=== PATIENT | male | born 2000 | race Two or more races ===

== ENCOUNTER 2023-09-01 12:36 | Inpatient (IN) | payer MEDICAID, OTHER ==
[~2023-09-01] VITALS: Ht 160 cm; Wt 78.2 kg
[2023-09-01] MEDS: ACETAMINOPHEN 325 MG TAB PO ONE (13:00)
[2023-09-01 13:15] VITALS: PULSE 145; RESP 18; O2SAT 89
[2023-09-01] MEDS: ACETAMINOPHEN 650 MG RECT SUPP PR ONE (13:29)
[2023-09-01] MEDS: levETIRAcetam 1000 mg/100ml 100 ML IV ONE (13:45)
[2023-09-01 14:16] LABS: Hematocrit 37.8 % (41.0-53.0); Hemoglobin 12.8 g/dL (13.5-17.5); Mean Corpuscular Hemoglobin 30.2 pg (28.0-32.0); Red Blood Cells 4.25 10^6/uL (4.5-5.90); Red Cell Distribution Width 13.9 % (11.8-14.3); White Blood Cell 9.9 10^3/uL (4.4-10.8)
[2023-09-01 14:19] LABS: Basophils % (manual) 0 (0.0-2.0); Blast Cells 0; Eosinophils % (manual) 0 (0-7); Metamyelocytes % 0; Myelocytes % 0; Promyelocytes % 0; Reactive Lymphocytes 0
[2023-09-01 14:37] LABS: Alanine Aminotransferase 48 U/L (7-40); Albumin 3.8 g/dL (3.2-4.8); Alkaline Phosphatase 96 U/L (46-116); Anion Gap 9 (5-15); BUN/Creatinine Ratio 12.7 (10.0-20.0); Bilirubin, Total 0.8 mg/dL (0.2-1.0); Blood Urea Nitrogen 17 mg/dL (9-23); Calcium 8.8 mg/dL (8.7-10.4); Carbon Dioxide 24 mmol/L (20-30); Chloride 103 mmol/L (98-107); Glucose 125 mg/dL (74-106); Magnesium 1.6 mg/dL (1.6-2.6); Potassium 3.6 mmol/L (3.5-5.1); Sodium 136 mmol/L (136-145); Total Protein 6.6 g/dL (5.7-8.2)
[2023-09-01 14:38] LABS: Aspartate Aminotransferase 37 U/L (13-40)
[2023-09-01 14:42] LABS: Band Neutrophils % (manual) 57; Lymphocytes % (manual) 5 (10.0-50.0); Monocytes % (manual) 3 (0-12)
[2023-09-01 14:43] LABS: Platelet Estimate Adequate
[2023-09-01] MEDS: SODIUM CHLORIDE 0.9% 2,000 ML IV ONE (15:30)
[2023-09-01] MEDS: NITROGLYCERIN 2% OINT 1GM PKG TD ONE (17:28)
[2023-09-01] MEDS ORDERED: NITROGLYCERIN 0.4 MG SL TAB SL PRN (17:30)
[2023-09-01] MEDS ORDERED: LEVO175T4 PO (17:30)
[2023-09-01] MEDS ORDERED: ONDANSETRON HCL 4 MG/2 ML VIAL IV PRN (17:30)
[2023-09-01] MEDS ORDERED: FLUT50SP EACHNOSTRI (17:30)
[2023-09-01] MEDS ORDERED: DOCU-265 PO (17:30)
[2023-09-01] MEDS ORDERED: MORPHINE SULFATE INJ 2 MG/ml SYRG IV PRN (17:30)
[2023-09-01] MEDS: PIPERACILLIN-TAZOB 3.375GM 100 ML IV ONE (17:32)
[2023-09-01] MEDS: ENOXAPARIN SOD 100 MG/1 ML SYRINGE SC ONE (17:32)
[2023-09-01] MEDS: LIDOCAINE 2% JELLY 11ml (GLYDO) UR ONE (19:28)
[2023-09-01] MEDS: SODIUM CHLORIDE 0.9% 1,000 ML IV SCH (19:28)
[2023-09-01 19:37] VITALS: PULSE 97; RESP 20; O2SAT 94
[2023-09-01] MEDS: ACETAMINOPHEN 325 MG TAB PO PRN (19:43)
[2023-09-01 19:54] LABS: Urine Bacteria FEW /hpf (None Seen); Urine Blood 2+ /uL (Negative); Urine Clarity Ex.Turbid (Clear); Urine Color Light-Orange (Yellow); Urine Mucus FEW (None Seen); Urine Protein, UAD 1+ (Negative); Urine Specific Gravity 1.014 (1.001-1.035); Urine Urobilinogen Normal (Negative); Urine WBC 1015 /hpf (0 - 3); Urine WBC Clumps PRESENT /hpf (None Seen); Urine pH 5.5 (5.0-9.0)
[2023-09-01 20:35] LABS: Rapid Influenza A Negative (Negative); Rapid Influenza B Negative (Negative)
[2023-09-01 20:36] LABS: COVID19 ANTIGEN SOFIA FIA NEGATIVE (NEGATIVE)
[2023-09-01] MEDS: SODIUM CHLORIDE 0.9% 500 ML IV ONE (21:12)
[2023-09-01] MEDS ORDERED: LORazepam 2MG/ML-1ML VIAL IV PRN ×2 (21:15)
[2023-09-01] MEDS ORDERED: ALBUMIN 5% 50 ML IV ONE (21:30)
[2023-09-01] MEDS: ALBUMIN 25% 100 ML IV ONE (21:56)
[2023-09-01] MEDS: ENOXAPARIN SOD 80 MG/0.8ML SYRINGE SC SCH (21:57)
[2023-09-01] MEDS ORDERED: levETIRAcetam 500 mg/100ml 100 ML IV SCH (22:00)
[2023-09-01] MEDS: NOREPINEPHRINE 8 MG/250ML KIT 250 ML IV SCH (22:45)
[2023-09-02 04:22] LABS: Basophils # (auto) 0 10 ^3/uL (0-0.2); Basophils % (auto) 0.5 % (0.0-2.0); Eosinophils # (auto) 0 10 ^3/uL (0-0.8); Eosinophils % (auto) 0.1 % (0.0-7.0); Hematocrit 35.5 % (41.0-53.0); Hemoglobin 12.3 g/dL (13.5-17.5); Lymphocytes # (auto) 1.3 10 ^3/uL (0.4-5.4); Lymphocytes % (auto) 13.2 % (10.0-50.0); Mean Corpuscular Hemoglobin 30.7 pg (28.0-32.0); Mean Corpuscular Hgb Conc. 34.6 g/dL (32.0-36.0); Mean Corpuscular Volume 88.7 fL (80.0-100.0); Monocytes # (auto) 0.4 10 ^3/uL (0-1.3); Monocytes % (auto) 3.7 % (0.0-12.0); Neutrophils # (auto) 8.1 10 ^3/uL (1.6-8.6); Neutrophils % (auto) 82.5 % (37.0-80.0); Nucleated Red Blood Cells % 0.1 %; Red Cell Distribution Width 14.1 % (11.8-14.3); White Blood Cell 9.8 10^3/uL (4.4-10.8)
[2023-09-02 04:42] LABS: Alanine Aminotransferase 35 U/L (7-40); Albumin 3.5 g/dL (3.2-4.8); Alkaline Phosphatase 74 U/L (46-116); Anion Gap 9 (5-15); Aspartate Aminotransferase 36 U/L (13-40); BUN/Creatinine Ratio 12.4 (10.0-20.0); Blood Urea Nitrogen 11 mg/dL (9-23); Calcium 8.5 mg/dL (8.5-10.1); Carbon Dioxide 22 mmol/L (20-30); Chloride 111 mmol/L (98-107); Glucose 124 mg/dL (74-106); Potassium 3.2 mmol/L (3.5-5.1); Sodium 142 mmol/L (136-145)
[2023-09-02 04:43] LABS: Bilirubin, Total 0.5 mg/dL (0.2-1.0); Total Protein 6.3 g/dL (5.7-8.2)
[2023-09-02 07:07] LABS: Amphetamine Screen, Urine Neg (NEGATIVE)
[2023-09-02 07:08] LABS: Barbiturate Scree,Urine Neg (NEGATIVE); Benzodiazephine Screen, Urine Neg (NEGATIVE); Cocaine Screen, Urine Neg (NEGATIVE)
[2023-09-02 07:09] LABS: Cannabinoid Screen, Urine Neg (NEGATIVE); Opiate Scree,Urine Neg (NEGATIVE); Phencyclidine Screen, Urine Neg (NEGATIVE)
[2023-09-02 07:30] VITALS: PULSE 87; RESP 12; O2SAT 96
[2023-09-02] MEDS ORDERED: ENOXAPARIN SOD 40 MG/0.4 ML SYRINGE SC SCH (10:00)
[2023-09-02 20:34] VITALS: BP 114/56; PULSE 92; RESP 17; TEMP 99.2; O2SAT 98
[2023-09-03] VITALS (7 sets, daily range): BP systolic 93–111; BP diastolic 47–75; PULSE 64–94; RESP 18–20; TEMP 97.6–98.6; O2SAT 93–97
[2023-09-04] VITALS (8 sets, daily range): BP systolic 100–140; BP diastolic 50–73; PULSE 58–84; RESP 14–20; TEMP 97.2–98.1; O2SAT 94–99
[2023-09-04] MEDS: cefTRIAXone 1GM/50ML D5W 50 ML IV SCH (09:24)
[2023-09-04] MEDS: POTASSIUM EFFERVESENT TAB 25 MEQ PO ONE (16:08)
[2023-09-05] VITALS (8 sets, daily range): BP systolic 90–126; BP diastolic 49–72; PULSE 66–98; RESP 14–18; TEMP 97.5–98.5; O2SAT 92–98
[2023-09-05 05:19] LABS: Basophils # (auto) 0.1 10 ^3/uL (0-0.2); Basophils % (auto) 0.8 % (0.0-2.0); Eosinophils # (auto) 0.1 10 ^3/uL (0-0.8); Eosinophils % (auto) 1.2 % (0.0-7.0); Hematocrit 36.2 % (41.0-53.0); Hemoglobin 12.5 g/dL (13.5-17.5); Lymphocytes # (auto) 1.5 10 ^3/uL (0.4-5.4); Lymphocytes % (auto) 21.1 % (10.0-50.0); Mean Corpuscular Hemoglobin 30.2 pg (28.0-32.0); Mean Corpuscular Hgb Conc. 34.6 g/dL (32.0-36.0); Mean Corpuscular Volume 87.5 fL (80.0-100.0); Monocytes # (auto) 0.4 10 ^3/uL (0-1.3); Neutrophils # (auto) 5.1 10 ^3/uL (1.6-8.6); Neutrophils % (auto) 71.9 % (37.0-80.0); Red Blood Cells 4.14 10^6/uL (4.5-5.90); Red Cell Distribution Width 13.7 % (11.8-14.3); White Blood Cell 7.1 10^3/uL (4.4-10.8)
[2023-09-05 05:25] LABS: Chloride 103 mmol/L (98-107); Potassium 3.8 mmol/L (3.5-5.1); Sodium 138 mmol/L (136-145)
[2023-09-05 05:26] LABS: Anion Gap 7 (5-15); Calcium 9.1 mg/dL (8.5-10.1); Carbon Dioxide 28 mmol/L (20-30)
[2023-09-05 05:31] LABS: BUN/Creatinine Ratio 17.9 (10.0-20.0); Blood Urea Nitrogen 15 mg/dL (9-23); Glucose 140 mg/dL (74-106)
[2023-09-05] MEDS: levoFLOXacin 500MG 100 ML IV SCH (10:22)
[2023-09-06 01:00] VITALS: BP 102/53; PULSE 85; RESP 18; TEMP 98.3; O2SAT 95
[2023-09-06 04:00] VITALS: BP 128/59; PULSE 85; RESP 18; TEMP 98.3; O2SAT 95
[2023-09-06 05:00] VITALS: BP 126/89; PULSE 63; RESP 14; TEMP 97.5; O2SAT 95
[2023-09-06 08:00] VITALS: PULSE 92
[2023-09-06 09:00] VITALS: BP 106/65; PULSE 72; RESP 14; TEMP 98.2; O2SAT 98
[2023-09-06 13:00] VITALS: BP 99/70; PULSE 73; RESP 16; TEMP 97.7; O2SAT 98
== END 2023-09-06 16:58 | disposition home or self-care (01) | DRG 720 ==
LOC: ER 12:36 → EDBD 12:36 → TELE 17:29 → TELE-WESTW 09-02 20:08
PROVIDERS: ADMIT Nurse Practitioner Family; ATTEND Nurse Practitioner Acute Care
DX: A41.9 Sepsis, unspecified organism (principal); I21.A1 Myocardial infarction type 2; G03.9 Meningitis, unspecified; G40.409 Other generalized epilepsy and epileptic syndromes, not intractable, without status epilepticus; E03.9 Hypothyroidism, unspecified; Q90.9 Down syndrome, unspecified; Z20.822 Contact with and (suspected) exposure to COVID-19; R33.9 Retention of urine, unspecified; F79 Unspecified intellectual disabilities; E66.9 Obesity, unspecified; K43.9 Ventral hernia without obstruction or gangrene; E87.6 Hypokalemia; R31.9 Hematuria, unspecified; F17.200 Nicotine dependence, unspecified, uncomplicated; N47.1 Phimosis; N35.819 Other urethral stricture, male, unspecified site; Z83.3 Family history of diabetes mellitus; Z68.30 Body mass index [BMI] 30.0-30.9, adult; Z79.899 Other long term (current) drug therapy
CPT/HCPCS: 36415; 70450; 71045; 72125; 74176; 80048; 80053; 80307; 81001; 83605; 83735; 83880; 84443; 84484; 85007; 85025; 85027; 87040; 87045; 87076; 87077; 87086; 87177; 87426; 87427; 87493; 87804; 93005; 93306; 95819; 96361; 96365; 96366; 96367; 96372; 97116; 97163; 97530; G0378; J1956; J2543; P9047